=== PATIENT | female | born 1985 ===

== ENCOUNTER 2021-08-22 20:46 | Inpatient (IN) | payer BC, OTHER ==
[~2021-08-22] VITALS: Ht 165.1 cm; Wt 90.0 kg
[2021-08-22] MEDS ORDERED: ASPI81CH PO (22:00)
[2021-08-22] MEDS ORDERED: PRENATAL TABLE1 EAC2 PO (22:01)
[2021-08-22] MEDS ORDERED: ERGO400 (22:01)
[2021-08-22 22:40] LABS: BASOPHILS ABSOLUTE AUTO 0.03 K/mm3 (0.00-0.23); BASOPHILS PERCENT AUTO 0 % (0-2); EOSINOPHILS ABSOLUTE AUTO 0.01 K/mm3 (0.00-0.68); EOSINOPHILS PERCENT AUTO 0 % (0-6); Hematocrit 32.9 % (33.0-51.0); Hemoglobin 10.5 g/dL (11.5-16.0); IMMATURE GRAN ABSOLUTE AUTO 0.08 K/mm3 (0.00-0.10); IMMATURE GRAN PERCENT AUTO 1 % (0-1); LYMPHOCYTES ABSOLUTE AUTO 2.07 K/mm3 (0.84-5.20); LYMPHOCYTES PERCENT AUTO 17 % (21-46); MONOCYTES ABSOLUTE AUTO 1.02 K/mm3 (0.16-1.47); MONOCYTES PERCENT AUTO 8 % (4-13); Mean Corpuscular HGB 26.9 pg (26.0-34.0); Mean Corpuscular HGB Conc 31.9 g/dL (31.5-36.5); Mean Corpuscular Volume 84 fL (80-100); Mean Platelet Volume 10.5 fL (9.1-12.4); NEUTROPHILS PERCENT AUTO 74 % (41-73); Platelet Count 271 K/mm3 (150-400); RDW Coefficient Variation 14.7 % (11.7-14.2); RDW Standard Deviation 44.8 fL (35.1-46.3); White Blood Cell Count 12.11 K/mm3 (4.00-11.30)
[2021-08-22 22:54] LABS: SARS-Cov-2 (COVID-19) PCR, MMC POSITIVE (NEGATIVE)
--- NOTE | 2021-08-23 05:28 | NUR ---
HR NOTE: RADIAL PULSE CHECK AFTER SHOWER AT 122 . PT STATES THAT THIS IS HER NORMAL POST COVID. AFTER RESTING IN BED HR DECREASED TO 89.
--- NOTE | 2021-08-23 20:51 | NUR ---
PT CALLED TO NOTIFY RN THAT SHE HAD PASSED A LARGE CLOT. RN NOTES A TANGERINE SIZED CLOT IN PTS PAD, THAT SHE REPORTS SHE HAD BEEN WEARING FOR 3+ HOURS, SCANT FRESH LOCHIA ON PAD. FUNDAL CHECK WNL WITH SMALL AMOUNT OF LOCHIA, WILL CONTINUE TO MONITOR.
[2021-08-24 05:30] LABS: BASOPHILS ABSOLUTE AUTO 0.04 K/mm3 (0.00-0.23); BASOPHILS PERCENT AUTO 0 % (0-2); EOSINOPHILS ABSOLUTE AUTO 0.05 K/mm3 (0.00-0.68); EOSINOPHILS PERCENT AUTO 0 % (0-6); Hematocrit 25.4 % (33.0-51.0); IMMATURE GRAN ABSOLUTE AUTO 0.12 K/mm3 (0.00-0.10); IMMATURE GRAN PERCENT AUTO 1 % (0-1); LYMPHOCYTES ABSOLUTE AUTO 3.05 K/mm3 (0.84-5.20); LYMPHOCYTES PERCENT AUTO 23 % (21-46); MONOCYTES ABSOLUTE AUTO 0.72 K/mm3 (0.16-1.47); MONOCYTES PERCENT AUTO 5 % (4-13); Mean Corpuscular HGB 26.8 pg (26.0-34.0); Mean Corpuscular HGB Conc 31.5 g/dL (31.5-36.5); Mean Corpuscular Volume 85 fL (80-100); Mean Platelet Volume 10.1 fL (9.1-12.4); NEUTROPHILS ABSOLUTE AUTO 9.55 K/mm3 (1.96-9.15); NEUTROPHILS PERCENT AUTO 71 % (41-73); Platelet Count 245 K/mm3 (150-400); RDW Standard Deviation 46.2 fL (35.1-46.3); Red Blood Cell Count 2.98 M/mm3 (3.80-5.20); White Blood Cell Count 13.53 K/mm3 (4.00-11.30)
== END 2021-08-24 13:14 | disposition home or self-care (01) | DRG 807 ==
LOC: OBS 20:46 → BC 20:50 → OBS 20:51 → BC 20:52
PROVIDERS: ADMIT Obstetrics & Gynecology
PROC: 10E0XZZ Delivery of Products of Conception, External Approach (ICD-10-PCS; principal; 2021-08-23)
DX: O34.211 Maternal care for low transverse scar from previous cesarean delivery (principal); Z37.0 Single live birth; N85.8 Other specified noninflammatory disorders of uterus; Z3A.38 38 weeks gestation of pregnancy; O76 Abnormality in fetal heart rate and rhythm complicating labor and delivery; Z88.1 Allergy status to other antibiotic agents; Z91.040 Latex allergy status; Z86.16 Personal history of COVID-19; Z86.39 Personal history of other endocrine, nutritional and metabolic disease; Z86.59 Personal history of other mental and behavioral disorders
CPT/HCPCS: 36415; 59025; 85025; 86850; 86900; 86901; 99214; A9270; J1885; J2590; J3010; J7120; U0004

== ENCOUNTER → 2023-06-24 | Outpatient (CLI) | payer BC, OTHER ==
[~2023-06-24] MED LIST: ASPI81CH PO; ERGO400; PRENATAL TABLE1 EAC2 PO
== END | disposition home or self-care (01) ==
LOC: LAB SHORT 14:42 → PLD 14:42
DX: D22.5 Melanocytic nevi of trunk (principal); D23.62 Other benign neoplasm of skin of left upper limb, including shoulder
CPT/HCPCS: 88305